=== PATIENT | male | born 2000 | race Caucasian/White ===

== ENCOUNTER 2022-09-18 05:59 | Day surgery (SDC) | payer BC ==
[2022-09-18] MEDS ORDERED: Dextrose 5%-0.45% NaCl 1,000 ML IV SCH (06:00)
[2022-09-18] MEDS ORDERED: fentaNYL 100 MCG/2 ML SDV IV ONE ×4 (06:00→07:25)
[2022-09-18] MEDS ORDERED: Midazolam 1 MG/ML 2 ML SDV IV ONE ×8 (06:00→07:23)
[2022-09-18] MEDS ORDERED: Midazolam 1 MG/ML 2 ML SDV ONE (06:13)
[2022-09-18] MEDS ORDERED: fentaNYL 100 MCG/2 ML SDV ONE (06:14)
== END 2022-09-18 09:20 | disposition home or self-care (01) ==
LOC: DL.ENDO 05:59
PROVIDERS: ATTEND Internal Medicine Gastroenterology
DX: K51.90 Ulcerative colitis, unspecified, without complications (principal); K52.9 Noninfective gastroenteritis and colitis, unspecified; D50.9 Iron deficiency anemia, unspecified
CPT/HCPCS: 45380; J2250; J3010; J7042

== ENCOUNTER 2023-02-11 05:27 | Day surgery (SDC) | payer BC ==
[2023-02-11] MEDS ORDERED: Midazolam 1 MG/ML 2 ML SDV ONE (06:11)
[2023-02-11] MEDS ORDERED: fentaNYL 100 MCG/2 ML SDV ONE (06:11)
== END 2023-02-11 07:04 | disposition home or self-care (01) ==
LOC: DL.SDS 05:27
PROVIDERS: ATTEND Internal Medicine Gastroenterology
DX: K51.90 Ulcerative colitis, unspecified, without complications (principal)

== ENCOUNTER 2023-09-20 05:28 | Day surgery (SDC) | payer BC ==
[2023-09-20] MEDS: Dextrose 5%-0.45% NaCl 1,000 ML IV SCH (05:57)
[2023-09-20] MEDS ORDERED: Midazolam 1 MG/ML 2 ML SDV ONE (06:05)
[2023-09-20] MEDS ORDERED: fentaNYL 100 MCG/2 ML SDV ONE (06:06)
[2023-09-20] MEDS ORDERED: fentaNYL 100 MCG/2 ML SDV IV ONE (06:06)
[2023-09-20] MEDS ORDERED: Midazolam 1 MG/ML 2 ML SDV IV ONE (06:06)
[2023-09-20] MEDS: fentaNYL 100 MCG/2 ML SDV IV ONE ×5 (06:26→06:42)
[2023-09-20] MEDS: Midazolam 1 MG/ML 2 ML SDV IV ONE ×6 (06:27→06:32)
== END 2023-09-20 08:21 | disposition home or self-care (01) ==
LOC: DL.ENDO 05:28
PROVIDERS: ATTEND Internal Medicine Gastroenterology
DX: K51.90 Ulcerative colitis, unspecified, without complications (principal)
CPT/HCPCS: J2250; J3010; J7042